=== PATIENT | male | born 1950 | race Caucasian/White ===

== ENCOUNTER → 2018-07-07 | Outpatient (CLI) | payer MEDICARE ==
[2018-07-07 15:28] LABS: BASOPHILS % (AUTO) 1.1 % (0.0-5.0); EOSINOPHILS % (AUTO) 4.6 % (0.0-8.0); HEMATOCRIT 42.1 % (42-54); LYMPHOCYTES % (AUTO) 18.6 % (21.0-51.0); MEAN CORPUSCULAR HEMOGLOBIN 30.3 pg (27.0-33.0); MEAN CORPUSCULAR VOLUME 89.3 fL (79-99); MONOCYTES % (AUTO) 10.8 % (3.0-13.0); NEUTROPHILS % (AUTO) 64.9 % (40.0-77.0); NUCLEATED RED BLOOD CELLS 0.1 % (0.0-0.19); PLATELET COUNT (AUTO) 219 K/uL (130-400); RED BLOOD CELL COUNT(AUTO) 4.71 MIL/uL (4.50-6.20); RED CELL DISTRIBUTION WIDTH 13.5 % (11.0-15.5); WHITE BLOOD COUNT (AUTO) 8.1 K/uL (4.8-10.8)
[2018-07-07 15:43] LABS: ALBUMIN 3.8 g/dL (3.5-5.0); BILIRUBIN,TOTAL 0.4 mg/dL (0.2-1.0); POTASSIUM 3.8 mmol/L (3.5-5.1); TOTAL PROTEIN, SERUM 7.7 g/dL (6.0-8.3)
[2018-07-07 16:29] LABS: ERYTHROCYTE SEDIMENTATION RATE 11 MM/HR (0-20)
== END | disposition home or self-care (01) ==
LOC: RAH 14:17
PROVIDERS: ATTEND Internal Medicine Rheumatology
DX: M47.892 Other spondylosis, cervical region (principal); M47.894 Other spondylosis, thoracic region; M47.896 Other spondylosis, lumbar region; M47.898 Other spondylosis, sacral and sacrococcygeal region; M48.08 Spinal stenosis, sacral and sacrococcygeal region; Z87.39 Personal history of other diseases of the musculoskeletal system and connective tissue
CPT/HCPCS: 36415; 72040; 72070; 72100; 72202; 80053; 85025; 85651; 86140; 86812

== ENCOUNTER → 2018-08-20 | Outpatient (CLI) | payer MEDICARE | END | disposition home or self-care (01) | LOC: RAH 10:34 | PROVIDERS: ATTEND Physical Medicine & Rehabilitation | DX: M54.14 Radiculopathy, thoracic region (principal) | CPT/HCPCS: 72146 ==

== ENCOUNTER → 2018-12-09 | Outpatient (CLI) | payer MEDICARE ==
[~2018-12-09] MED LIST: IOHEXOL-350 50ML VIAL IV ONE
== END | disposition home or self-care (01) ==
LOC: RAH 13:46
PROVIDERS: ATTEND Internal Medicine
DX: D17.9 Benign lipomatous neoplasm, unspecified (principal); E88.2 Lipomatosis, not elsewhere classified; M47.812 Spondylosis without myelopathy or radiculopathy, cervical region
CPT/HCPCS: 72127; Q9967

== ENCOUNTER → 2020-06-13 | Outpatient (CLI) | payer MEDICARE | END | disposition home or self-care (01) | LOC: RAH 15:12 | PROVIDERS: ATTEND Family Medicine | DX: M47.814 Spondylosis without myelopathy or radiculopathy, thoracic region (principal); M54.5 Low back pain; M54.2 Cervicalgia; M40.50 Lordosis, unspecified, site unspecified; M54.9 Dorsalgia, unspecified; M54.6 Pain in thoracic spine; I70.0 Atherosclerosis of aorta; M40.204 Unspecified kyphosis, thoracic region | CPT/HCPCS: 72040; 72072; 72100 ==

== ENCOUNTER 2021-07-02 12:00 | Inpatient (IN) | payer MEDICARE ==
[~2021-07-02] VITALS: Ht 165.1 cm; Wt 124.4 kg
[2021-07-03 14:44] LABS: BASOPHILS % (AUTO) 0.7 % (0.0-5.0); EOSINOPHILS % (AUTO) 3.1 % (0.0-8.0); HEMATOCRIT 44.3 % (42-54); LYMPHOCYTES % (AUTO) 14.4 % (21.0-51.0); MEAN CORPUSCULAR HEMOGLOBIN 30.5 pg (27.0-33.0); MEAN CORPUSCULAR HGB CONC 33.9 g/dL (32.0-36.0); MONOCYTES % (AUTO) 8.6 % (3.0-13.0); PLATELET COUNT (AUTO) 260 K/uL (130-400); RED BLOOD CELL COUNT(AUTO) 4.92 MIL/uL (4.50-6.20); RED CELL DISTRIBUTION WIDTH 13.3 % (11.0-15.5); WHITE BLOOD COUNT (AUTO) 8.4 K/uL (4.8-10.8)
[2021-07-03 14:45] LABS: APPEARANCE,URINE Clear (CLEAR); BILIRUBIN,URINE Negative (NEGATIVE); COLOR,URINE Yellow (YELLOW); GLUCOSE, URINE (UA) Negative (NEGATIVE); KETONES,URINE Negative (NEGATIVE); LEUKOCYTE ESTERASE ,URINE Negative (NEGATIVE); NITRATE,URINE Negative (NEGATIVE); OCCULT BLOOD,URINE Negative (NEGATIVE); PH,URINE 5.5 (5.0-8.0); PROTEIN,URINE Negative (NEGATIVE)
[2021-07-03 14:58] LABS: INR 1.1 (0.85-1.15); PROTHROMBIN TIME 11.9 SEC (9.6-11.6)
[2021-07-03 15:02] LABS: ALBUMIN 3.8 g/dL (3.5-5.0); BILIRUBIN,DIRECT 0.2 mg/dL (0.0-0.3); BILIRUBIN,TOTAL 0.5 mg/dL (0.2-1.0); POTASSIUM 3.4 mmol/L (3.5-5.1); TOTAL PROTEIN, SERUM 7.7 g/dL (6.0-8.3)
[2021-07-03] MEDS ORDERED: ALBUTEROL 0.083% 2.5 MG/3 ML INH IH ONE (15:26)
[2021-07-08 11:22] VITALS: BP 140/67
[2021-07-08] MEDS ORDERED: ENAL20TA18 PO (14:34)
[2021-07-08] MEDS ORDERED: LEVO125C4 PO (14:34)
[2021-07-08] MEDS ORDERED: FURO20TA4 PO (14:34)
[2021-07-08] MEDS ORDERED: HYDR-4068 PO (14:34)
[2021-07-08] MEDS ORDERED: ALLO100T PO (14:34)
[2021-07-08] MEDS ORDERED: METO-408 PO (14:34)
[2021-07-08] MEDS ORDERED: PREG75CA75 PO (14:34)
[2021-07-08] MEDS ORDERED: ATOR20TA65 PO (14:34)
[2021-07-08] MEDS ORDERED: METF-445 PO (14:34)
[2021-07-08] MEDS ORDERED: AMLO-257 PO (14:34)
[2021-07-08] MEDS ORDERED: ISOS60TA77 PO (14:34)
[2021-07-08] MEDS ORDERED: AEC81 PO (14:34)
[2021-07-08] MEDS ORDERED: HYDR12.54 PO (14:34)
[2021-07-08] MEDS ORDERED: TAMS-1 PO (14:34)
[2021-07-09] VITALS (26 sets, daily range): BP systolic 80–136; BP diastolic 36–69
[2021-07-09] MEDS ORDERED: EPINEPHRINE PF 1MG AMP 10 MG in 0.9% NACL 250ML 240 ML IV PRN (06:30)
[2021-07-09] MEDS ORDERED: NOREPINEPHRINE BITARTRATE 8 MG in DEXTROSE 5%-WATER 250 ML IV PRN (06:30)
[2021-07-09] MEDS ORDERED: AMINOCAPROIC ACID 5,000MG VIAL 15,000 MG in 0.9% NACL 500ML IV.SOLN 420 ML IV PRN (06:30)
[2021-07-09] MEDS ORDERED: 0.9%NACL 1000ML 1,000 ML IV ONE (06:46)
[2021-07-09] MEDS ORDERED: PAPAVERINE HCL 30 MG/ML 2ML VIAL ONE (06:52)
[2021-07-09] MEDS ORDERED: HEPARIN 10,000 UNIT/10ML (1,000 UNIT/ML) VIAL ONE ×2 (06:52→07:18)
[2021-07-09] MEDS ORDERED: NITROGLYCERIN 50MG/D5W 250ML 1 BOT ONE ×2 (06:59→14:09)
[2021-07-09] MEDS ORDERED: PROTAMINE SULFATE 10 MG/ML 25ML VIAL IV ONE ×2 (07:17→11:44)
[2021-07-09] MEDS ORDERED: ESMOLOL HCL 10 MG/ML 10 ML VIAL ONE (07:17)
[2021-07-09] MEDS ORDERED: SODIUM BICARB 50MEQ 50ML VIAL 150 ML ONE (07:18)
[2021-07-09] MEDS ORDERED: AMINOCAPROIC ACID 5,000MG VIAL ONE (07:18)
[2021-07-09] MEDS ORDERED: LIDOCAINE PF 100MG/5ML (2%) SYRINGE 5ML ONE ×3 (07:18→12:47)
[2021-07-09] MEDS ORDERED: NOREPINEPHRINE BITARTRATE 1 MG/1 ML ML IV ONE ×2 (07:18→08:04)
[2021-07-09] MEDS ORDERED: EPINEPHRINE PF 1MG AMP ONE (07:18)
[2021-07-09] MEDS ORDERED: ROCURONIUM 10MG/1ML SYR 10 MG/ML ML ONE ×2 (07:19→11:39)
[2021-07-09] MEDS ORDERED: SUCCINYLCHOLINE CHLORIDE 20 MG/ML 10 ML VIAL ONE (07:19)
[2021-07-09] MEDS ORDERED: MIDAZOLAM HCL 1 MG/ML 2ML VIAL ONE (07:19)
[2021-07-09] MEDS ORDERED: PROPOFOL 10 MG/ML 20ML VIAL IV ONE (07:19)
[2021-07-09] MEDS ORDERED: FENTANYL CITRATE PF 50 MCG/1 ML 20ML VIAL IJ ONE (07:19)
[2021-07-09] MEDS ORDERED: ETOMIDATE 20MG VIAL ONE (07:20)
[2021-07-09] MEDS: CEFUROXIME SODIUM 1.5 GM VIAL ONE ×2 (07:29→08:00)
[2021-07-09] MEDS ORDERED: DELNIDO FORMULA 2 BAG IV ONE (08:02)
[2021-07-09 08:25] LABS: ABG BASE EXCESS -1.6 mmol/L (-2.0-3.0); ABG HCO3 24.2 mmol/L (21.0-28.0); ABG OXYGEN SATURATION 99.2 % (95.0-99.0); ABG PCO2 45 mmHg (35-48)
[2021-07-09] MEDS ORDERED: MANNITOL 20% 500ML BAG 500 ML IV ONE (08:38)
[2021-07-09] MEDS ORDERED: THROMBIN-JMI 20000 UNIT KIT TP ONE (08:42)
[2021-07-09] MEDS ORDERED: LIDOCAINE HCL-MPF 1% 5ML AMP IJ ONE (08:44)
[2021-07-09] MEDS ORDERED: GLYCOPYRROLATE 1 MG/5 ML SYRINGE ONE (08:48)
[2021-07-09 09:20] LABS: ABG HCO3 25.8 mmol/L (21.0-28.0); ABG OXYGEN SATURATION 99.3 % (95.0-99.0); ABG PCO2 42 mmHg (35-48)
[2021-07-09 10:17] LABS: ABG BASE EXCESS 0.9 mmol/L (-2.0-3.0); ABG HCO3 26.6 mmol/L (21.0-28.0); ABG OXYGEN SATURATION 99.2 % (95.0-99.0); ABG PCO2 47 mmHg (35-48)
[2021-07-09] MEDS ORDERED: AMINOCAPROIC ACID 5,000MG VIAL IV ONE (10:34)
[2021-07-09] MEDS ORDERED: CACL 1GM SYG IVP ONE (10:34)
[2021-07-09] MEDS ORDERED: ALBUMIN (HUMAN) 25% 50 ML IV ONE (10:34)
[2021-07-09] MEDS ORDERED: HEPARIN 10,000 UNIT/10ML (1,000 UNIT/ML) VIAL IV ONE (10:34)
[2021-07-09] MEDS ORDERED: SODIUM BICARB 8.4% 50ML SYRINGE IVP ONE (10:34)
[2021-07-09 11:02] LABS: ABG BASE EXCESS -1.4 mmol/L (-2.0-3.0); ABG HCO3 23.5 mmol/L (21.0-28.0); ABG OXYGEN SATURATION 99.2 % (95.0-99.0); ABG PCO2 41 mmHg (35-48)
[2021-07-09] MEDS ORDERED: CEFUROXIME SODIUM 1.5 GM VIAL ONE (11:28)
[2021-07-09 12:01] LABS: ABG BASE EXCESS -0.3 mmol/L (-2.0-3.0); ABG HCO3 24.7 mmol/L (21.0-28.0); ABG PCO2 42 mmHg (35-48)
[2021-07-09] MEDS ORDERED: AMIODARONE 150MG VIAL ONE (12:13)
[2021-07-09 12:21] LABS: ABG BASE EXCESS -1.1 mmol/L (-2.0-3.0); ABG HCO3 23.3 mmol/L (21.0-28.0); ABG OXYGEN SATURATION 99.1 % (95.0-99.0); ABG PCO2 38 mmHg (35-48)
[2021-07-09 13:24] LABS: ABG BASE EXCESS -1.6 mmol/L (-2.0-3.0); ABG HCO3 22.2 mmol/L (21.0-28.0); ABG OXYGEN SATURATION 98.6 % (95.0-99.0); ABG PCO2 34 mmHg (35-48)
[2021-07-09] MEDS ORDERED: SODIUM BICARB 50MEQ 50ML VIAL 100 ML ONE (13:39)
[2021-07-09] MEDS ORDERED: ALBUTEROL INHALER 90MCG/INH IH ONE (13:40)
[2021-07-09 14:31] LABS: BASOPHILS % (AUTO) 0.3 % (0.0-5.0); EOSINOPHILS % (AUTO) 0.8 % (0.0-8.0); HEMATOCRIT 35.5 % (42-54); LYMPHOCYTES % (AUTO) 11.1 % (21.0-51.0); MEAN CORPUSCULAR HEMOGLOBIN 30.5 pg (27.0-33.0); MEAN CORPUSCULAR HGB CONC 34.1 g/dL (32.0-36.0); MEAN CORPUSCULAR VOLUME 89.4 fL (79-99); MONOCYTES % (AUTO) 6.8 % (3.0-13.0); NEUTROPHILS % (AUTO) 80.5 % (40.0-77.0); PLATELET COUNT (AUTO) 159 K/uL (130-400); RED BLOOD CELL COUNT(AUTO) 3.97 MIL/uL (4.50-6.20); RED CELL DISTRIBUTION WIDTH 13.3 % (11.0-15.5); WHITE BLOOD COUNT (AUTO) 15.4 K/uL (4.8-10.8)
[2021-07-09] MEDS ORDERED: MORPHINE 2 MG SYG ONE (14:36)
[2021-07-09 14:43] LABS: INR 1.22 (0.85-1.15); PROTHROMBIN TIME 13.1 SEC (9.6-11.6)
[2021-07-09 14:43] LABS: ABG BASE EXCESS -4.6 mmol/L (-2.0-3.0); ABG HCO3 21.2 mmol/L (21.0-28.0); ABG PCO2 42 mmHg (35-48)
[2021-07-09 14:44] LABS: PARTIAL THROMBOPLASTIN TIME 23.1 SEC (26.3-35.5)
[2021-07-09 14:45] LABS: CREATININE 0.8 mg/dL (0.5-1.5); MAGNESIUM 2.4 mg/dL (1.80-2.40); PHOSPHORUS 3.2 mg/dL (2.5-4.9)
[2021-07-09] MEDS ORDERED: CALCIUM GLUC 1 GM /D5W 50ML IV PRN ×2 (15:00)
[2021-07-09] MEDS ORDERED: MAGNESIUM 2GM PREMIX IV PRN (15:00)
[2021-07-09] MEDS ORDERED: ACETAMINOPHEN 650 MG SUPPOSITORY RC PRN (15:00)
[2021-07-09] MEDS ORDERED: POTASSIUM PHOS 15 mMOL+NS250ML IV PRN (15:00)
[2021-07-09] MEDS ORDERED: AMINOCAPROIC ACID 5,000MG VIAL 15,000 MG in 0.9% NACL 250ML 190 ML IV SCH (15:00)
[2021-07-09] MEDS ORDERED: 0.9% NACL 500ML IV SCH (15:00)
[2021-07-09] MEDS ORDERED: SODIUM BICARB 8.4% 50ML SYRINGE IV PRN (15:00)
[2021-07-09] MEDS ORDERED: PROPOFOL 1000 MG/100 ML IV PRN (15:00)
[2021-07-09] MEDS ORDERED: MORPHINE 4 MG SYG IVP PRN (15:00)
[2021-07-09] MEDS ORDERED: 0.9%NACL 10ML VIAL IVP PRN (15:00)
[2021-07-09] MEDS ORDERED: INSULIN REGULAR HUMAN 100 UNIT /NS 100ML IV SCH ×2 (15:00)
[2021-07-09] MEDS ORDERED: POTASSIUM CHLORIDE 10 MEQ/NS 50ML IV PRN ×2 (15:00)
[2021-07-09] MEDS ORDERED: ONDANSETRON 4MG INJ IVP PRN (15:00)
[2021-07-09] MEDS ORDERED: 0.9%NACL 1000ML IV SCH (15:00)
[2021-07-09] MEDS ORDERED: MORPHINE 2 MG SYG IVP PRN (15:00)
[2021-07-09] MEDS ORDERED: POTASSIUM CHLORIDE 20MEQ/100ML IV PRN (15:00)
[2021-07-09] MEDS ORDERED: NICARDIPINE HCL 100 MG/NS 100ML IV SCH ×2 (15:00)
[2021-07-09] MEDS ORDERED: NITROGLYCERIN 50 MG/D5% WATER 250 ML IV PRN (15:00)
[2021-07-09] MEDS ORDERED: CALCIUM GLUC 1 GM/NS 50ML IV PRN ×2 (15:00)
[2021-07-09] MEDS ORDERED: ACETAMINOPHEN 325 MG TAB PO PRN (15:00)
[2021-07-09] MEDS: 0.9%NACL 1000ML 1,000 ML IV SCH (15:31)
[2021-07-09] MEDS ORDERED: DEXMEDETOMIDINE 400MCG/NS100ML IV ONE (15:56)
[2021-07-09] MEDS ORDERED: DEXMEDETOMIDINE 400MCG/NS100ML IV SCH (16:00)
[2021-07-09 17:25] LABS: ABG BASE EXCESS -2.1 mmol/L (-2.0-3.0); ABG HCO3 23.7 mmol/L (21.0-28.0); ABG OXYGEN SATURATION 93.7 % (95.0-99.0); ABG PCO2 45 mmHg (35-48)
[2021-07-09] MEDS ORDERED: KETOROLAC 15MG/ML VIAL (15MG/ML) ONE (17:48)
[2021-07-09] MEDS: HYDROCODONE/ACETAMINOPHEN 5/325 MG TAB PO PRN ×2 (17:52→22:15)
[2021-07-09] MEDS ORDERED: CEFUROXIME SODIUM 1.5 GM VIAL IVP SCH (18:00)
[2021-07-09 18:36] LABS: ABG BASE EXCESS -2.3 mmol/L (-2.0-3.0); ABG HCO3 23.6 mmol/L (21.0-28.0); ABG OXYGEN SATURATION 93.6 % (95.0-99.0); ABG PCO2 45 mmHg (35-48)
[2021-07-09 23:08] LABS: POTASSIUM 4.5 mmol/L (3.5-5.1)
[2021-07-09] MEDS: CEFUROXIME SODIUM 1.5 GM VIAL IVP SCH (23:36)
[2021-07-10] VITALS (32 sets, daily range): BP systolic 86–147; BP diastolic 42–68
[2021-07-10 01:41] LABS: ABG BASE EXCESS -0.7 mmol/L (-2.0-3.0); ABG HCO3 24.1 mmol/L (21.0-28.0); ABG OXYGEN SATURATION 88.5 % (95.0-99.0); ABG PCO2 40 mmHg (35-48)
[2021-07-10 04:04] LABS: ABG BASE EXCESS -1.3 mmol/L (-2.0-3.0); ABG HCO3 23.2 mmol/L (21.0-28.0); ABG OXYGEN SATURATION 93.5 % (95.0-99.0); ABG PCO2 38 mmHg (35-48)
[2021-07-10] MEDS: HYDROCODONE/ACETAMINOPHEN 5/325 MG TAB PO PRN ×3 (04:36→20:07)
[2021-07-10 06:26] LABS: BASOPHILS % (AUTO) 0.2 % (0.0-5.0); EOSINOPHILS % (AUTO) 0.1 % (0.0-8.0); HEMATOCRIT 34.8 % (42-54); LYMPHOCYTES % (AUTO) 4.6 % (21.0-51.0); MEAN CORPUSCULAR HEMOGLOBIN 30.7 pg (27.0-33.0); MEAN CORPUSCULAR HGB CONC 33.6 g/dL (32.0-36.0); MEAN CORPUSCULAR VOLUME 91.3 fL (79-99); MONOCYTES % (AUTO) 11.2 % (3.0-13.0); NEUTROPHILS % (AUTO) 83.3 % (40.0-77.0); PLATELET COUNT (AUTO) 157 K/uL (130-400); RED BLOOD CELL COUNT(AUTO) 3.81 MIL/uL (4.50-6.20); RED CELL DISTRIBUTION WIDTH 13.8 % (11.0-15.5)
[2021-07-10 06:43] LABS: CREATININE 1.3 mg/dL (0.5-1.5); PHOSPHORUS 3.6 mg/dL (2.5-4.9); POTASSIUM 4.2 mmol/L (3.5-5.1)
[2021-07-10] MEDS: PANTOPRAZOLE 40 MG/VIAL IVP SCH (07:51)
[2021-07-10] MEDS: TAMSULOSIN HCL 0.4 MG CAP.ER.24H PO SCH (08:42)
[2021-07-10] MEDS: FUROSEMIDE 20 MG TABLET PO SCH (08:42)
[2021-07-10] MEDS: ASPIRIN 81 MG EC TAB PO SCH (08:42)
[2021-07-10] MEDS: HYDROCHLOROTHIAZIDE 25 MG TABLET PO SCH (08:43)
[2021-07-10] MEDS: METOPROLOL TARTRATE 25 MG TAB PO SCH ×2 (08:43→21:00)
[2021-07-10] MEDS: MORPHINE 4 MG SYG IVP PRN ×2 (08:51→20:54)
[2021-07-10] MEDS ORDERED: ENALAPRIL MALEATE 10 MG TABLET PO SCH ×2 (09:00→13:30)
[2021-07-10] MEDS ORDERED: FUROSEMIDE 20MG VIAL ONE (10:44)
[2021-07-10] MEDS ORDERED: FUROSEMIDE 20MG VIAL IV ONE (11:00)
[2021-07-10] MEDS: MORPHINE 2 MG SYG IVP PRN ×2 (11:12→18:00)
[2021-07-10] MEDS: CEFUROXIME SODIUM 1.5 GM VIAL IVP SCH (12:16)
[2021-07-10] MEDS ORDERED: AMLODIPINE 5 MG TAB PO SCH (12:30)
[2021-07-10] MEDS ORDERED: CALCIUM CARB 500MG CHEW TAB PO PRN (15:00)
[2021-07-10] MEDS: 0.9%NACL 1000ML 1,000 ML IV SCH (15:00)
[2021-07-10] MEDS: IPRATROPIUM 0.5 MG/2.5 ML INH IH SCH (18:00)
[2021-07-10 21:31] LABS: MAGNESIUM 1.8 mg/dL (1.80-2.40); POTASSIUM 4.1 mmol/L (3.5-5.1)
[2021-07-11] VITALS (77 sets, daily range): BP systolic 79–171; BP diastolic 37–135
[2021-07-11] MEDS: IPRATROPIUM 0.5 MG/2.5 ML INH IH SCH
[2021-07-11] MEDS: CEFUROXIME SODIUM 1.5 GM VIAL IVP SCH (00:25)
[2021-07-11] MEDS: MORPHINE 4 MG SYG IVP PRN ×6 (00:26→21:34)
[2021-07-11 04:04] LABS: HEMATOCRIT 31.4 % (42-54); MEAN CORPUSCULAR HEMOGLOBIN 30.6 pg (27.0-33.0); MEAN CORPUSCULAR HGB CONC 33.1 g/dL (32.0-36.0); MEAN CORPUSCULAR VOLUME 92.4 fL (79-99); RED BLOOD CELL COUNT(AUTO) 3.4 MIL/uL (4.50-6.20); WHITE BLOOD COUNT (AUTO) 21.1 K/uL (4.8-10.8)
[2021-07-11 04:31] LABS: CREATININE 2.1 mg/dL (0.5-1.5); MAGNESIUM 4.7 mg/dL (1.80-2.40); POTASSIUM 4.5 mmol/L (3.5-5.1); THYROID STIMULATING HORMONE 0.71 uIU/mL (0.36-3.74)
[2021-07-11 05:00] LABS: ABG BASE EXCESS -0.6 mmol/L (-2.0-3.0); ABG OXYGEN SATURATION 92.9 % (95.0-99.0); ABG PCO2 39 mmHg (35-48)
[2021-07-11] MEDS: LEVOTHYROXINE 125 MCG TABLET PO SCH (06:06)
[2021-07-11] MEDS: PANTOPRAZOLE 40 MG/VIAL IVP SCH (08:54)
[2021-07-11] MEDS: HYDROCHLOROTHIAZIDE 25 MG TABLET PO SCH (08:55)
[2021-07-11] MEDS: FUROSEMIDE 20 MG TABLET PO SCH (08:55)
[2021-07-11] MEDS: TAMSULOSIN HCL 0.4 MG CAP.ER.24H PO SCH (08:56)
[2021-07-11] MEDS: ENOXAPARIN SODIUM 40 MG/0.4 ML SYRINGE SQ SCH (08:56)
[2021-07-11] MEDS: ASPIRIN 81 MG EC TAB PO SCH (08:56)
[2021-07-11] MEDS ORDERED: ENALAPRIL MALEATE 10 MG TABLET PO SCH ×3 (09:00)
[2021-07-11] MEDS ORDERED: GLUCAGON 1MG KIT 1 MG ML IM PRN (09:30)
[2021-07-11] MEDS ORDERED: ONDANSETRON 4MG INJ IVP PRN (09:30)
[2021-07-11] MEDS ORDERED: DEXTROSE 50%-WATER 50 ML DISP.SYRIN IV PRN (09:30)
[2021-07-11] MEDS: METOPROLOL TARTRATE 25 MG TAB PO SCH ×2 (10:04→20:35)
[2021-07-11] MEDS: INSULIN HUMULIN R 100 UNIT/ML 3ML SQ SCH ×3 (11:10→20:36)
[2021-07-11 11:51] LABS: ABG BASE EXCESS -2.1 mmol/L (-2.0-3.0); ABG HCO3 22.4 mmol/L (21.0-28.0); ABG OXYGEN SATURATION 94.9 % (95.0-99.0); ABG PCO2 38 mmHg (35-48)
[2021-07-11] MEDS ORDERED: MAGNESIUM CITRATE 296 ML SOLUTION PO SCH (13:00)
[2021-07-11] MEDS ORDERED: CHLORDIAZEPOXIDE HCL 25 MG CAP PO PRN (17:30)
[2021-07-12] VITALS (25 sets, daily range): BP systolic 104–159; BP diastolic 52–104
[2021-07-12] MEDS: MORPHINE 4 MG SYG IVP PRN ×5 (02:56→22:14)
[2021-07-12 03:58] LABS: HEMATOCRIT 30.4 % (42-54); MEAN CORPUSCULAR HEMOGLOBIN 30.4 pg (27.0-33.0); MEAN CORPUSCULAR HGB CONC 33.2 g/dL (32.0-36.0); MEAN CORPUSCULAR VOLUME 91.6 fL (79-99); RED BLOOD CELL COUNT(AUTO) 3.32 MIL/uL (4.50-6.20); WHITE BLOOD COUNT (AUTO) 17.8 K/uL (4.8-10.8)
[2021-07-12 04:18] LABS: CREATININE 1.3 mg/dL (0.5-1.5)
[2021-07-12] MEDS: INSULIN HUMULIN R 100 UNIT/ML 3ML SQ SCH ×4 (06:14→20:15)
[2021-07-12] MEDS: LEVOTHYROXINE 125 MCG TABLET PO SCH (06:14)
[2021-07-12] MEDS: IPRATROPIUM 0.5 MG/2.5 ML INH IH SCH (07:50)
[2021-07-12] MEDS: PANTOPRAZOLE 40 MG/VIAL IVP SCH (08:11)
[2021-07-12] MEDS: HYDROCHLOROTHIAZIDE 25 MG TABLET PO SCH (08:11)
[2021-07-12] MEDS: TAMSULOSIN HCL 0.4 MG CAP.ER.24H PO SCH (08:11)
[2021-07-12] MEDS: FUROSEMIDE 20 MG TABLET PO SCH (08:11)
[2021-07-12] MEDS: THIAMINE HCL 100 MG/ML 2ML VIAL IVP SCH (08:11)
[2021-07-12] MEDS: ASPIRIN 81 MG EC TAB PO SCH (08:12)
[2021-07-12] MEDS: ENOXAPARIN SODIUM 40 MG/0.4 ML SYRINGE SQ SCH (08:12)
[2021-07-12] MEDS: METOPROLOL TARTRATE 25 MG TAB PO SCH ×2 (08:12→20:14)
[2021-07-12] MEDS: ISOSORBIDE MONO 30MG SR TAB PO SCH (11:15)
[2021-07-12] MEDS: HYDRALAZINE 20MG/ML VIAL IV SCH ×2 (11:15→20:14)
[2021-07-12] MEDS: PREGABALIN 75 MG CAPSULE PO SCH (20:15)
[2021-07-13] VITALS (13 sets, daily range): BP systolic 128–178; BP diastolic 70–82
[2021-07-13] MEDS: HYDRALAZINE 20MG/ML VIAL IV SCH ×4 (03:17→23:30)
[2021-07-13] MEDS: MORPHINE 4 MG SYG IVP PRN ×4 (04:23→20:55)
[2021-07-13 04:35] LABS: HEMATOCRIT 31.2 % (42-54); MEAN CORPUSCULAR HEMOGLOBIN 30.3 pg (27.0-33.0); MEAN CORPUSCULAR HGB CONC 33.7 g/dL (32.0-36.0); MEAN CORPUSCULAR VOLUME 89.9 fL (79-99); RED BLOOD CELL COUNT(AUTO) 3.47 MIL/uL (4.50-6.20); RED CELL DISTRIBUTION WIDTH 13.7 % (11.0-15.5); WHITE BLOOD COUNT (AUTO) 13.1 K/uL (4.8-10.8)
[2021-07-13 04:53] LABS: POTASSIUM 3.5 mmol/L (3.5-5.1)
[2021-07-13] MEDS ORDERED: POTASSIUM CHLORIDE 10% ELIXIR 20 MEQ/15 ML UDCUP ONE (05:10)
[2021-07-13] MEDS: LEVOTHYROXINE 125 MCG TABLET PO SCH (05:36)
[2021-07-13] MEDS: INSULIN HUMULIN R 100 UNIT/ML 3ML SQ SCH ×4 (06:07→20:56)
[2021-07-13] MEDS ORDERED: KCL 20 MEQ ERTAB PO SCH (09:00)
[2021-07-13] MEDS: FUROSEMIDE 20 MG TABLET PO SCH (09:00)
[2021-07-13] MEDS: TAMSULOSIN HCL 0.4 MG CAP.ER.24H PO SCH (09:44)
[2021-07-13] MEDS: HYDROCHLOROTHIAZIDE 25 MG TABLET PO SCH (09:44)
[2021-07-13] MEDS: ASPIRIN 81 MG EC TAB PO SCH (09:45)
[2021-07-13] MEDS: PREGABALIN 75 MG CAPSULE PO SCH ×2 (09:45→20:56)
[2021-07-13] MEDS: METOPROLOL TARTRATE 25 MG TAB PO SCH ×2 (09:46→20:55)
[2021-07-13] MEDS: ISOSORBIDE MONO 30MG SR TAB PO SCH (09:46)
[2021-07-13] MEDS: PANTOPRAZOLE 40 MG/VIAL IVP SCH (09:46)
[2021-07-13] MEDS: THIAMINE HCL 100 MG/ML 2ML VIAL IVP SCH (09:47)
[2021-07-13] MEDS: FUROSEMIDE 20MG VIAL IV SCH ×2 (09:47→20:55)
[2021-07-13] MEDS: ENOXAPARIN SODIUM 40 MG/0.4 ML SYRINGE SQ SCH (09:48)
[2021-07-13] MEDS: MORPHINE 2 MG SYG IVP PRN (13:25)
[2021-07-14] MEDS: MORPHINE 2 MG SYG IVP PRN ×2 (03:54→11:25)
[2021-07-14] MEDS: HYDRALAZINE 20MG/ML VIAL IV SCH ×3 (06:00→22:00)
[2021-07-14] MEDS: LEVOTHYROXINE 125 MCG TABLET PO SCH (06:09)
[2021-07-14] MEDS: INSULIN HUMULIN R 100 UNIT/ML 3ML SQ SCH ×4 (06:34→21:00)
[2021-07-14 06:56] LABS: CREATININE 0.8 mg/dL (0.5-1.5); MAGNESIUM 2.4 mg/dL (1.80-2.40)
[2021-07-14 08:00] VITALS: BP 167/96
[2021-07-14] MEDS ORDERED: PHARMACY COMMUNICATION MISC SCH (08:00)
[2021-07-14] MEDS: MORPHINE 4 MG SYG IVP PRN ×5 (08:56→21:21)
[2021-07-14] MEDS: ISOSORBIDE MONO 30MG SR TAB PO SCH (09:14)
[2021-07-14] MEDS: HYDROCHLOROTHIAZIDE 25 MG TABLET PO SCH (09:15)
[2021-07-14] MEDS: TAMSULOSIN HCL 0.4 MG CAP.ER.24H PO SCH (09:15)
[2021-07-14] MEDS: THIAMINE HCL 100 MG/ML 2ML VIAL IVP SCH (09:15)
[2021-07-14] MEDS: PANTOPRAZOLE 40 MG/VIAL IVP SCH (09:15)
[2021-07-14] MEDS: FUROSEMIDE 20MG VIAL IV SCH ×2 (09:16→20:38)
[2021-07-14] MEDS: METOPROLOL TARTRATE 25 MG TAB PO SCH ×2 (09:16→20:37)
[2021-07-14] MEDS: ASPIRIN 81 MG EC TAB PO SCH (09:16)
[2021-07-14] MEDS: ALLOPURINOL 100 MG TABLET PO SCH (09:16)
[2021-07-14] MEDS: ENOXAPARIN SODIUM 40 MG/0.4 ML SYRINGE SQ SCH (09:16)
[2021-07-14] MEDS: KCL 20 MEQ ERTAB PO SCH ×2 (09:17→20:39)
[2021-07-14] MEDS: PREGABALIN 75 MG CAPSULE PO SCH ×2 (09:17→20:37)
[2021-07-14] MEDS ORDERED: KCL 20 MEQ ERTAB PO SCH (11:45)
[2021-07-14 12:07] VITALS: BP 117/73
[2021-07-14 16:08] VITALS: BP 129/74
[2021-07-14] MEDS ORDERED: KETOROLAC 15MG/ML VIAL (15MG/ML) IV ONE (18:00)
[2021-07-14 20:45] VITALS: BP 123/67
[2021-07-14] MEDS ORDERED: ATORVASTATIN 40 MG TABLET PO SCH (21:00)
[2021-07-15] VITALS: BP 111/60
[2021-07-15 03:33] LABS: HEMATOCRIT 31.7 % (42-54); MEAN CORPUSCULAR HEMOGLOBIN 30.5 pg (27.0-33.0); MEAN CORPUSCULAR HGB CONC 33.4 g/dL (32.0-36.0); MEAN CORPUSCULAR VOLUME 91.4 fL (79-99); RED BLOOD CELL COUNT(AUTO) 3.47 MIL/uL (4.50-6.20); WHITE BLOOD COUNT (AUTO) 12.9 K/uL (4.8-10.8)
[2021-07-15 03:46] LABS: CREATININE 0.9 mg/dL (0.5-1.5); MAGNESIUM 2.2 mg/dL (1.80-2.40); POTASSIUM 3.6 mmol/L (3.5-5.1)
[2021-07-15 04:00] VITALS: BP 128/70
[2021-07-15] MEDS: MORPHINE 4 MG SYG IVP PRN ×2 (04:30→07:27)
[2021-07-15] MEDS ORDERED: KCL 20 MEQ ERTAB PO ONE (05:35)
[2021-07-15] MEDS: HYDRALAZINE 20MG/ML VIAL IV SCH (06:04)
[2021-07-15] MEDS: INSULIN HUMULIN R 100 UNIT/ML 3ML SQ SCH ×3 (06:05→16:21)
[2021-07-15] MEDS: LEVOTHYROXINE 125 MCG TABLET PO SCH (06:05)
[2021-07-15 07:00] VITALS: BP 130/73
[2021-07-15] MEDS ORDERED: FUROSEMIDE 40 MG TABLET PO SCH (08:00)
[2021-07-15] MEDS: PANTOPRAZOLE 40 MG/VIAL IVP SCH (08:29)
[2021-07-15] MEDS: ASPIRIN 81 MG EC TAB PO SCH (08:30)
[2021-07-15] MEDS: PREGABALIN 75 MG CAPSULE PO SCH (08:30)
[2021-07-15] MEDS: ISOSORBIDE MONO 30MG SR TAB PO SCH (08:30)
[2021-07-15] MEDS: METOPROLOL TARTRATE 25 MG TAB PO SCH (08:30)
[2021-07-15] MEDS: TAMSULOSIN HCL 0.4 MG CAP.ER.24H PO SCH (08:30)
[2021-07-15] MEDS: ALLOPURINOL 100 MG TABLET PO SCH (08:30)
[2021-07-15] MEDS: THIAMINE HCL 100 MG/ML 2ML VIAL IVP SCH (08:31)
[2021-07-15] MEDS: ENOXAPARIN SODIUM 40 MG/0.4 ML SYRINGE SQ SCH (08:31)
[2021-07-15] MEDS: HYDROCHLOROTHIAZIDE 25 MG TABLET PO SCH (08:31)
[2021-07-15 11:00] VITALS: BP 149/65
[2021-07-15] MEDS ORDERED: CHLORDIAZEPOXIDE HCL 25 MG CAP PO PRN (11:00)
[2021-07-15] MEDS ORDERED: KETOROLAC 30MG VIAL (30MG/ML) IM ONE (11:00)
[2021-07-15] MEDS: HYDROCODONE/ACETAMINOPHEN 5/325 MG TAB PO PRN ×2 (11:07→17:40)
[2021-07-15] MEDS ORDERED: ENALAPRIL MALEATE 10 MG TABLET PO SCH (12:00)
[2021-07-15] MEDS ORDERED: KETOROLAC 30MG VIAL (30MG/ML) ONE (12:34)
[2021-07-15] MEDS ORDERED: LOPERAMIDE HCL 2 MG CAP PO ONE ×2 (12:35→13:30)
[2021-07-15 16:00] VITALS: BP 119/69
[2021-07-15] MEDS ORDERED: FUROSEMIDE 20 MG TABLET PO SCH (17:00)
[2021-07-15] MEDS ORDERED: PANTOPRAZOLE 40 MG TAB DR PO SCH (21:00)
[2021-07-15] MEDS ORDERED: KCL 20 MEQ ERTAB PO SCH (21:00)
== END 2021-07-15 18:10 | DRG 219 ==
LOC: DAHIP 07-09 06:05 → 2CV 07-09 13:59 → 2CH 07-10 10:44 → 2DH 07-13 15:27
PROVIDERS: ADMIT Hospitalist; ATTEND Hospitalist
PROC: 5A1221Z Performance of Cardiac Output, Continuous (ICD-10-PCS; 2021-07-09)
PROC: B24BZZ4 Ultrasonography of Heart with Aorta, Transesophageal (ICD-10-PCS; 2021-07-09)
PROC: 30233R1 Transfusion of Nonautologous Platelets into Peripheral Vein, Percutaneous Approach (ICD-10-PCS; 2021-07-09)
PROC: 02RF08Z Replacement of Aortic Valve with Zooplastic Tissue, Open Approach (ICD-10-PCS; principal; 2021-07-09 07:30)
PROC: 02100Z9 Bypass Coronary Artery, One Artery from Left Internal Mammary, Open Approach (ICD-10-PCS; 2021-07-09 07:30)
PROC: 021009W Bypass Coronary Artery, One Artery from Aorta with Autologous Venous Tissue, Open Approach (ICD-10-PCS; 2021-07-09 07:30)
PROC: 06BQ4ZZ Excision of Left Saphenous Vein, Percutaneous Endoscopic Approach (ICD-10-PCS; 2021-07-09 07:30)
PROC: 5A09357 Assistance with Respiratory Ventilation, Less than 24 Consecutive Hours, Continuous Positive Airway Pressure (ICD-10-PCS; 2021-07-10)
PROC: 5A0935A Assistance with Respiratory Ventilation, Less than 24 Consecutive Hours, High Flow/Velocity Cannula (ICD-10-PCS; 2021-07-12)
PROC: 5A09357 Assistance with Respiratory Ventilation, Less than 24 Consecutive Hours, Continuous Positive Airway Pressure (ICD-10-PCS; 2021-07-13)
PROC: 5A0935A Assistance with Respiratory Ventilation, Less than 24 Consecutive Hours, High Flow/Velocity Cannula (ICD-10-PCS; 2021-07-13)
PROC: 5A09357 Assistance with Respiratory Ventilation, Less than 24 Consecutive Hours, Continuous Positive Airway Pressure (ICD-10-PCS; 2021-07-15)
DX: I35.0 Nonrheumatic aortic (valve) stenosis (principal); J96.01 Acute respiratory failure with hypoxia; J96.02 Acute respiratory failure with hypercapnia; J44.1 Chronic obstructive pulmonary disease with (acute) exacerbation; J98.11 Atelectasis; K50.90 Crohn's disease, unspecified, without complications; N17.9 Acute kidney failure, unspecified; Z68.42 Body mass index [BMI] 45.0-49.9, adult; I11.0 Hypertensive heart disease with heart failure; E11.9 Type 2 diabetes mellitus without complications; D17.9 Benign lipomatous neoplasm, unspecified; D72.829 Elevated white blood cell count, unspecified; E03.9 Hypothyroidism, unspecified; E66.01 Morbid (severe) obesity due to excess calories; E78.5 Hyperlipidemia, unspecified; G47.33 Obstructive sleep apnea (adult) (pediatric); G89.4 Chronic pain syndrome; I25.10 Atherosclerotic heart disease of native coronary artery without angina pectoris; I50.9 Heart failure, unspecified; J98.2 Interstitial emphysema; M10.9 Gout, unspecified; M45.9 Ankylosing spondylitis of unspecified sites in spine; Z88.0 Allergy status to penicillin; I25.2 Old myocardial infarction; Z79.891 Long term (current) use of opiate analgesic; Z79.899 Other long term (current) drug therapy; Z87.891 Personal history of nicotine dependence; Z95.5 Presence of coronary angioplasty implant and graft; Z82.0 Family history of epilepsy and other diseases of the nervous system; Z80.59 Family history of malignant neoplasm of other urinary tract organ; Z80.0 Family history of malignant neoplasm of digestive organs; Z82.49 Family history of ischemic heart disease and other diseases of the circulatory system
CPT/HCPCS: 36415; 71045; 71046; 73620; 80048; 80076; 81003; 82435; 82803; 82947; 82948; 83605; 83735; 84100; 84132; 84295; 84443; 84550; 85018; 85025; 85027; 85347; 85384; 85610; 85730; 86850; 86900; 86901; 86922; 87635; 88305; 88311; 93005; 93313; 93318; 93971; 94002; 94003; 94060; 94640; 94660; 94667; 94668; 97039; A4344; A7048; C1729; C1757; C9113; G0378; J0171; J0282; J0330; J0360; J0697; J1644; J1650; J1815; J1885; J1940; J2001; J2250; J2270; J2405; J2440; J2704; J2720; J3010; J3411; J3475; J3480; J3490; J7030; J7040; P9034; P9047

== ENCOUNTER → 2022-01-02 | Outpatient (CLI) | payer MEDICARE ==
[~2022-01-02] MED LIST changes: +AEC81 PO; +ALLO100T PO; +ATOR20TA65 PO; +ENAL20TA18 PO; +FURO20TA4 PO; +HYDR-4068 PO; +HYDR12.54 PO; -IOHEXOL-350 50ML VIAL IV ONE; +ISOS60TA77 PO; +LEVO125C4 PO; +METF-445 PO; +METO-408 PO; +PREG75CA75 PO; +TAMS-1 PO
== END | disposition home or self-care (01) ==
LOC: SHCH 13:17
PROVIDERS: ATTEND Internal Medicine Cardiovascular Disease
DX: I11.0 Hypertensive heart disease with heart failure (principal); I50.32 Chronic diastolic (congestive) heart failure; I34.8 Other nonrheumatic mitral valve disorders; E11.9 Type 2 diabetes mellitus without complications; E78.5 Hyperlipidemia, unspecified; E66.9 Obesity, unspecified
CPT/HCPCS: 93306

== ENCOUNTER → 2022-01-20 | Outpatient (CLI) | payer MEDICARE | END | disposition home or self-care (01) | LOC: OIH 14:11 | PROVIDERS: ATTEND Internal Medicine Cardiovascular Disease | DX: I87.2 Venous insufficiency (chronic) (peripheral) (principal); Z95.1 Presence of aortocoronary bypass graft | CPT/HCPCS: 93970 ==

== ENCOUNTER → 2023-07-13 | Outpatient (CLI) | payer MEDICARE ==
[~2023-07-13] MED LIST changes: +ENAL-91 PO; -ENAL20TA18 PO; -PREG75CA75 PO; +PREG75CA76 PO
== END | disposition home or self-care (01) ==
LOC: SHCH 10:49
PROVIDERS: ATTEND Internal Medicine Cardiovascular Disease
DX: I07.1 Rheumatic tricuspid insufficiency (principal); I11.9 Hypertensive heart disease without heart failure; E78.5 Hyperlipidemia, unspecified; E11.9 Type 2 diabetes mellitus without complications; R06.00 Dyspnea, unspecified
CPT/HCPCS: 93306

== ENCOUNTER → 2024-02-05 | Outpatient (CLI) | payer MEDICARE | END | disposition home or self-care (01) | LOC: RAH 12:30 | PROVIDERS: ATTEND Orthopaedic Surgery | DX: M23.322 Other meniscus derangements, posterior horn of medial meniscus, left knee (principal); M25.862 Other specified joint disorders, left knee; M25.462 Effusion, left knee; M17.12 Unilateral primary osteoarthritis, left knee | CPT/HCPCS: 73721 ==

== ENCOUNTER → 2024-06-28 | Outpatient (CLI) | payer MEDICARE ==
[~2024-06-28] MED LIST changes: +ALBUTEROL IH; +ATOR40TA71 PO; +ERGO500093 PO; +FINA5TAB41 PO; +FURO40TA5 PO; +LID5O TP; +LIDOP TP; +METO50TA18 PO; +NITR0.4T50 SL; +PANTOPRAZOLE PO; +POTA-202 PO; +SEMA7TAB2 PO; +TESTOSTERONE IM
[2024-06-28 15:49] LABS: ALBUMIN 3.5 g/dL (3.5-5.0); BILIRUBIN,TOTAL 0.4 mg/dL (0.2-1.0); CREATININE 1.2 mg/dL (0.5-1.3); POTASSIUM 3.7 mmol/L (3.5-5.1); TOTAL PROTEIN, SERUM 7.2 g/dL (6.0-8.3)
== END | disposition home or self-care (01) ==
LOC: LAB 15:06
PROVIDERS: ATTEND Internal Medicine Gastroenterology
DX: R93.89 Abnormal findings on diagnostic imaging of other specified body structures (principal)
CPT/HCPCS: 36415; 80053

== ENCOUNTER → 2024-07-01 | Outpatient (CLI) | payer MEDICARE ==
[~2024-07-01] VITALS: Ht 165.1 cm; Wt 113.3 kg
[~2024-07-01] MED LIST changes: +IOHEXOL 350 MG/ML 100ML INFUS..BTL IV ONE
[2024-07-01 14:57] VITALS: BP 140/67; PULSE 69; RESP 20; TEMP 98.5
== END | disposition home or self-care (01) ==
LOC: RAH 09:56
PROVIDERS: ATTEND Internal Medicine Gastroenterology
DX: J84.9 Interstitial pulmonary disease, unspecified (principal); R93.89 Abnormal findings on diagnostic imaging of other specified body structures; M47.815 Spondylosis without myelopathy or radiculopathy, thoracolumbar region
CPT/HCPCS: 71260; 70491; Q9967

== ENCOUNTER → 2025-03-30 | Outpatient (CLI) | payer MEDICARE ==
[~2025-03-30] MED LIST changes: -AEC81 PO; -ATOR20TA65 PO; -FURO20TA4 PO; -HYDR-4068 PO; -IOHEXOL 350 MG/ML 100ML INFUS..BTL IV ONE; -ISOS60TA77 PO; -LEVO125C4 PO; +LEVO125C5 PO; -METO-408 PO; -TAMS-1 PO; +TAMS-55 PO
--- NOTE | 2025-03-31 05:38 | HMCIMG ---
EXAMINATION: SOFT TISSUE ULTRASOUND OF THE NECK. CLINICAL HISTORY: Palpable swelling. COMPARISON: CT soft tissue neck with contrast dated 07/01/2024. TECHNIQUE: Transverse and longitudinal images were obtained in the neck. FINDINGS: There are lymph nodes that measure 0.7 x 0.2 x 0.6 cm on the right side and 1.5 x 0.2 x 0.7 cm, 0.7 x 0.4 x 0.9 cm, 1.6 x 0.5 x 1.1 cm on the left side of the neck. Hilar echoes are maintained. No increased vascularity. IMPRESSION: Bilateral cervical lymph nodes. /[place]
== END | disposition home or self-care (01) ==
LOC: RAH 10:00
PROVIDERS: ATTEND Family Medicine
DX: R59.0 Localized enlarged lymph nodes (principal)
CPT/HCPCS: 76536